=== PATIENT | male | born 1965 | race Caucasian/White ===

== ENCOUNTER → 2017-10-28 09:44 | Outpatient (CLI) | payer OTHER, BC, SELFPAY ==
--- NOTE | 2017-10-28 | DI.CT.S_ITS ---
PROCEDURE: CT CHEST W CON INDICATIONS: DYSPNEA TECHNIQUE: After the administration of intravenous contrast, 5 mm thick sections acquired from the pulmonary apices to the posterior costophrenic angles. 7 mm thick coronal and sagittal MIP reformats were acquired. For radiation dose reduction, the following was used: automated exposure control, adjustment of mA and/or kV according to patient size. COMPARISON: None. FINDINGS: Image quality: Excellent. Lungs and pleura: No acute air space opacities. No pleural effusions or pneumothorax. Central and peripheral airways are patent and normal in caliber. There is no lung mass. No definite pulmonary nodules are evident. Minimal scarring within the lung apices is present. Mediastinum: Heart size is normal. No pericardial effusion. No mediastinal or hilar adenopathy by size criteria. Thoracic aorta and central pulmonary arteries are normal in size. No filling defects within the pulmonary arteries are appreciated. Esophagus is normal in caliber. No hiatal hernia. Bones and chest wall: No suspicious bony lesions. No vertebral body compression fractures. No axillary or supraclavicular adenopathy by size criteria. Thyroid gland is is not enlarged. Age-appropriate degenerative changes of the spine are present. Abdomen: The included portions of the upper abdomen demonstrate the liver to be somewhat hypodense when compared to the spleen. Otherwise, the included upper abdominal structures are unremarkable. IMPRESSION: Unremarkable CT of the chest. No acute cardiopulmonary process is evident. There is no pneumonia or overt heart failure. Dictated by: Adiel Galindo M.D. on 10/28/2017 at 9:37 Approved by: Adiel Galindo M.D. on 10/28/2017 at 9:46
== END ==
PROVIDERS: Visit Provider Physician Assistant Medical
DX: R06.00 Dyspnea, unspecified (principal)
CPT/HCPCS: 71260; Q9967

== ENCOUNTER → 2018-07-09 19:38 | Outpatient (CLI) | payer OTHER, BC, SELFPAY ==
[2018-07-09 20:49] LABS: Influenza A and B by PCR Rapid Negative (Negative)
== END ==
PROVIDERS: Visit Provider Physician Assistant
DX: R68.89 Other general symptoms and signs (principal)
CPT/HCPCS: 87400